=== PATIENT | male | born 1940 | race Caucasian/White ===

== ENCOUNTER 2023-05-05 19:00 | Inpatient (IN) | payer OTHER, SELFPAY ==
--- NOTE | 2023-05-05 14:35 | ITS.CL.PACE ---
Childbirth And Infant Care Teacher - Pacemaker Implant
Pacemaker Implant
Procedure Report:
PACEMAKER IMPLANT REPORT
Primary Care Provider: WEI Ruiz
Primary Sewer Pipe Press Operator: Dr. Shawn Vela
Date of Procedure: 05/05/2023
Procedure:
1: Implantation of dual-chamber permanent pacemaker utilizing the left bundle branch for conduction system pacing
Indication/Diagnosis:
1: Non-reversible symptomatic bradycardia due to type II second degree atrioventricular block
HISTORY: The patient is an 83-year-old man with a past medical history significant for hypertension, coronary artery disease status post CABG, and syncope associated with a Mobitz type II second-degree AV block. He is referred for dual-chamber
pacemaker placement.
Antibiotic: Ancef 2 g IV
Sedation: Per anesthesia staff
After informed consent was obtained, 'time out' was called and confirmed, the patient was prepped and draped in a sterile fashion. Lidocaine with epi was used for local anesthesia. Central venous access was obtained via subclavian venipuncture. An
incision was made along the left chest and a pre-pectoral pocket was formed. Using a Seldinger technique and peel-away sheaths, the pacing leads were placed under fluoroscopic guidance.
Fluoroscopy was used to determine likely anatomic site for left bundle branch pacing. The Medtronic C315 sheath was used to deliver the Medtronic 3830 Selectsecure pacing lead with the helix exposed just exposed from the sheath tip during continuous
monitoring when pacemapping the septum during gentle clockwise rotation to obtain a paced QRS morphology of a W pattern in lead V1. Once the suspected optimal site was identified, lead deployment was performed with several rapid rotations as paced
QRS morphology was intermittently monitored until a paced QRS complex in lead V1 demonstrated development of an R wave (qR or rSR).
Final conduction system paced QRS complex duration is 115 ms.
LVAT is 62 ms and peak V5 -> peak V1 timing is 53 ms.
Right atrial lead was placed at the RAA area. The patient is post CABG.
Once testing (see below) showed adequate and stable function, the leads were secured using the suture sleeves. The pocket was liberally irrigated with antibiotic solution. The leads were connected to the generator header and the leads and
generator were placed within the pocket. Fluoroscopy confirmed stable lead position. The pocket was closed in the typical fashion.
[ ] Antibiotic pouch was used
Fluoroscopy Time (min): 23.2
Radiation Dose (mGy): 80.75
DAP (Gy.cm2): 12
IMPLANTS:
Medtronic [id number], SN: [id number], Left Pectoral
RA: Medtronic 5076-52, SN: [id number], RAA
RV: Medtronic 3830 , SN: [id number], Interventricular septum at LBB
DEVICE TESTING:
Sensing: RA 1.4 mV, RV 5.5 mV
Capture: RA 0.75 V@0.4ms, RV 0.5 V@0.4ms
Ohms: RA 532, RV 546
FINAL PROGRAMMING
Vasyl Pacing: AAIR+DDDR 60-130 ppm
COMPLICATIONS: None
CONCLUSIONS:
1: Successful implant of dual chamber permanent pacemaker utilizing Left Bundle Branch conduction system capture for pacing.
RECOMMENDATIONS:
1. Post-op care (tele, CXR, IV abx)
2. In-Office wound check Monday.
Copy to: WEI Ruiz
--- NOTE | 2023-05-05 14:44 | W.PN.CARDCBS ---
Today's Communication / Plan
-
cefazolin periop
DC PPM implant
CXR post procedure
Impression / Plan
-
PCP: Betty Mohamud, DO
CDY: Marito Vela DO
HPI: 83 y/o, PMH sig for CAD, NSTEMI w/CABG x4(2015) complicated by brief postoperative AFib, HTN, HLD, DM, anxiety. He is very active and plays tennis 4-5x/weekly and does up to 9000 steps a day.
Presented to [facility] ER 05/03 after syncopal episode while playing tennis. Sustained facial abrasions and left eyebrow laceration repaired with sutures, as well as left thumb distal phalanx fracture. EKG revealed 1st deg AVB but on tele notable for short
episodes of Mobitz Type 2 AVB. Transferred for DC PPM implant today.
IMPRESSION:
Syncope
Mobitz type 2 Second deg AVB
1st deg AVB
Left thumb fracture/Left eyebrow laceration/facial abrasions
CAD
Prior NSTEMI w/CABG x4 (2015)
Post op AFib
HTN
HLD
DM
Anxiety
PLAN:
Dual chamber PPM implant today
cefazolin for abx prophylaxis
post procedure CXR
incision check next week at [facility]
discussed activity restrictions for the next 3-4 weeks- no tennis but ok to walk. He is aware and agreeable to limitations discussed.
symptomatic care for trauma related injuries- not wearing thumb splint at this time but will wear it when he goes home
should be on daily aspirin, statin- not taking and doesn't want to
echo- done at [facility] today- report not available at time of transfer
monitor BP, check lipid profile in AM
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
Subjective
Date of Service: May 05, 2023
Physical Exam
Physical Exam
AAOx3, MAEE 5/
Left periorbital swelling, ecchymosis, abrasions noted with left eyebrow sutures intact
RRR S1 S2 no murmurs
CTA bilat, non labored
soft abd, + bs
bilat extremities w/palpable distal pulses, no edema
left thumb with dressing CDI
[2023-05-05 16:02] VITALS: BP 141/88
[2023-05-05 16:31] LABS: Glucose - Point of Care 108 mg/dl (70-99)
[2023-05-05 16:37] VITALS: BP 141/88
[2023-05-05 16:38] VITALS: BMI 29.8
[2023-05-05 18:52] VITALS: BP 123/82
[2023-05-05 20:03] VITALS: BP 131/72
[2023-05-05 20:54] VITALS: BMI 27.6
[2023-05-05 22:25] VITALS: BP 145/90
[2023-05-05] MEDS: TYLENOL 650 MG PO (23:14)
[2023-05-05] MEDS: ANCEF 5 IV (23:14)
--- NOTE | 2023-05-05 23:43 | PTCARENOTE ---
Received pt from EP lab at approx 18:50. Patient AAOx3, VSS, and sating 93-95% RA. Tele monitor applied patient SR and occasional Apaced. HR in the 60-80's at rest. Patient denies any chest discomfort, but does c/o headache pain. Tylenol
administered--see MAR for details. Left anterior chest dressing intact, and immobilizer in place. Patient educated on activity restrictions, and verbalized understanding. See nursing skin assessment for further info. Ambulated patient to wheelchair,
patient steady on feet and denies any dizziness. CXR obtained. Patient aware of POC, call ingram in reach.
[2023-05-06 04:02] VITALS: BP 127/79
[2023-05-06 04:44] LABS: Blood Urea Nitrogen 20 mg/dl (9-20); Carbon Dioxide 24 mmol/L (22-30); Chloride 107 mmol/L (98-107); Estimated Creatinine Clearance 85 ml/min; Glucose 122 mg/dl (70-99); HDL Cholesterol 36 mg/dl; LDL Cholesterol, Calculated 85 mg/dl; Potassium 4.2 mmol/L (3.5-5.1); Sodium 137 mmol/L (135-145); Total Cholesterol 152 mg/dl (50-199); Triglyceride 159 mg/dl (10-149); Very Low Density Lipoprotein 31 mg/dl (0-30); eGFR > 60.00
[2023-05-06 04:48] LABS: Hematocrit 43.2 % (39.0-52.0); Hemoglobin 14.8 g/dL (13.0-18.0); Mean Corp Hgb Conc. 34.3 g/dL (33.0-37.0); Mean Corpuscular Hgb 30.8 pg (27.0-31.0); Mean Corpuscular Volume 89.8 fL (80.0-94.0); Mean Platelet Volume 10.1 fL (7.4-10.4); Platelet Count 178 10^3/uL (130-400); Red Blood Cell Count 4.81 10^6/uL (4.70-6.10); Red Cell Dist. Width 13.2 % (11.5-14.5); White Blood Cell Count 6.8 10^3/uL (4.8-10.8)
--- NOTE | 2023-05-06 07:24 | PTCARENOTE ---
Received patient this morning resting in bed, denies any pain or discomfort. Dressing left upper chest is dry and intact.
[2023-05-06 07:49] VITALS: BP 117/91
--- NOTE | 2023-05-06 08:18 | W.PN.CARDCBS ---
Addendum entered and electronically signed by Rick Miller MD 05/06/23 08:45:
I saw and examined the patient.
The Equipment Tech's note was reviewed and I agree with the note.
Comment: Briefly, 83-year-old man who presented to [facility] with traumatic syncope and was found to be in second-degree AV block
Underwent permanent pacemaker implantation on 05/05/2023
Feels well today, no cardiac complaints
Telemetry is unremarkable
Stable cardiac status
He will follow-up with his primary internet sales director, Dr. Vela
Original Note:
Today's Communication / Plan
-
Feeling well
Stable post PPM
Incision check next week with [facility]
OK for discharge
Impression / Plan
-
PCP: Betty Mohamud DO
CDY: Marito Vela DO
Impression:
Syncope
Mobitz type 2 Second deg AVB
s/p Medtronic DC PPM 05/05/2023
1st deg AVB
Left thumb fracture/Left eyebrow laceration/facial abrasions
CAD
Prior NSTEMI w/CABG x4 (2015)
Post op AFib
HTN
HLD
DM
Anxiety
Plan:
-Presented initially to [facility] after syncopal episode during tennis game.
-Noted to have short episodes of Mobitz type 2 AV block and transferred to for PPM.
-s/p Medtronic PPM 05/04. Remains paced on tele. Feeling well overnight.
-BP and HR stable. Not on any medications as OP.
-Discussed activity restrictions, no tennis but ok to walk.
-Incision check arranged at [facility]
-Symptomatic care for trauma related injuries- not wearing thumb splint at this time but will wear it when he goes home
-Should be on daily aspirin, statin- not taking and doesn't want to. Discuss further as OP.
-OK for discharge
HPI: 83 y/o, PMH sig for CAD, NSTEMI w/CABG x4(2014) complicated by brief postoperative AFib, HTN, HLD, DM, anxiety. He is very active and plays tennis 4-5x/weekly and does up to 9000 steps a day.
Presented to [facility] ER 05/03 after syncopal episode while playing tennis. Sustained facial abrasions and left eyebrow laceration repaired with sutures, as well as left thumb distal phalanx fracture. EKG revealed 1st deg AVB but on tele notable for short
episodes of Mobitz Type 2 AVB. Transferred for DC PPM implant today.
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
Subjective
Date of Service: May 06, 2023
Feeling well overnight. No dizziness or lightheadedness.
Objective
Labs:
05/06/23 04:10
05/06/23 04:10
Labs
Hgb 14.8 g/dL (13.0-18.0) 05/06/23 04:10
Hct 43.2 % (39.0-52.0) 05/06/23 04:10
Plt Count 178 10^3/uL (130-400) 05/06/23 04:10
Sodium 137 mmol/L (135-145) 05/06/23 04:10
Potassium 4.2 mmol/L (3.5-5.1) 05/06/23 04:10
BUN 20 mg/dl (9-20) 05/06/23 04:10
Creatinine 0.7 mg/dL (0.7-1.3) 05/06/23 04:10
Glucose 122 mg/dl (70-99) H 05/06/23 04:10
Vital Signs and I&O:
Vital Signs
Temp Pulse Resp BP Pulse Ox
98.2 F 62 14 127/79 93
05/06/23 07:47 05/06/23 07:47 05/06/23 07:47 05/06/23 04:02 05/06/23 07:47
Vital Signs
Temp Pulse Resp BP Pulse Ox
98.2 F 62 14 127/79 93
05/06/23 07:47 05/06/23 07:47 05/06/23 07:47 05/06/23 04:02 05/06/23 07:47
Intake & Output
05/04/23 05/05/23 05/06/23 05/07/23
06:59 06:59 06:59 06:59
Intake Total 240 / 240
Output Total 225 / 225 250 / 250
Balance -250 / -250
Physical Exam
Physical Exam
GEN: No distress, awake, alert, oriented x3
HEENT: supple, anicteric, mmm
LUNGS: CTA b/l, no wheezes/rales
CV: Reg, S1/S2, no murmur
EXT: No clubbing, cyanosis, or edema
NEURO: Gross non-focal
SKIN: Warm, dry, no rash
[2023-05-06] MEDS: ANCEF 5 IV (08:26)
--- NOTE | 2023-05-06 08:41 | W.DS.TRANS ---
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
-
Discharge Instructions:
Discharge Diagnosis/Procedures Syncope with heart block, s/p pacemaker implant
Diet Low Cholesterol
Driving Restrictions No driving for 1 week
Bathing Restrictions OK to Shower
Instructions:
Stand-Alone Forms: DC Inst - Implanted Device
Changes to Home Medications: No
Discharge Medications:
DC Medications w/original date entered in [facility]
ascorbic acid 125 mg-collagen, hydrolyzed 740 mg capsule 1 cap PO DAILY 05/05/23
calcium carbonate-magnesium oxide 333 mg-167 mg tablet 1 tab PO DAILY 05/05/23
cholecalciferol (vitamin D3) 25 mcg (1,000 unit) tablet 25 mcg PO DAILY 05/05/23
multivitamin with folic acid 400 mcg tablet 1 tab PO DAILY 05/05/23
vitamin B complex 1 tab PO DAILY 05/05/23
Home Medication Changes
Pending Results: No
--- NOTE | 2023-05-06 11:41 | PTCARENOTE ---
Patient seen by cardiology and is ok for discharge. Tegaderm and gauze removed from left chest wall as per MD order, steri strips intact. No signs of bleeding or hematoma noted. Reviewed discharge instructions with the patient and his S.O. and they
state their understanding. Aware of follow up incision check on Monday. Patient discharged home.
--- NOTE | 2023-05-08 08:53 | CM ---
pt prev indep, no dc planning needs noted. dc'ed to home
== END 2023-05-06 11:15 | disposition home or self-care (01) | DRG 244 ==
LOC: IVU 19:00
PROVIDERS: Internal Medicine Interventional Cardiology; Nurse Practitioner; ADMITTING PHYSICIAN Internal Medicine Cardiovascular Disease; ATTENDING PHYSICIAN Internal Medicine Interventional Cardiology
PROC: 0JH606Z Insertion of Pacemaker, Dual Chamber into Chest Subcutaneous Tissue and Fascia, Open Approach (ICD-10-PCS; 2023-05-05)
PROC: 02H63JZ Insertion of Pacemaker Lead into Right Atrium, Percutaneous Approach (ICD-10-PCS; 2023-05-05)
PROC: 02HK3JZ Insertion of Pacemaker Lead into Right Ventricle, Percutaneous Approach (ICD-10-PCS; 2023-05-05)
DX: I44.1 Atrioventricular block, second degree (principal); I25.10 Atherosclerotic heart disease of native coronary artery without angina pectoris; I10 Essential (primary) hypertension; E78.5 Hyperlipidemia, unspecified; E11.9 Type 2 diabetes mellitus without complications; I25.2 Old myocardial infarction; Z95.1 Presence of aortocoronary bypass graft
CPT/HCPCS: 33208; 71045; 80048; 80061; 82962; 85027; 87070; 93005; C1769; C1785; C1887; C1892; C1898; Q9967

== ENCOUNTER → 2024-12-06 11:40 | Outpatient (REF) | payer OTHER, SELFPAY | LOC: HWRCS 11:40 | PROVIDERS: ATTENDING PHYSICIAN Internal Medicine Cardiovascular Disease | DX: Z95.1 Presence of aortocoronary bypass graft (principal) | CPT/HCPCS: 78452; 93017; A9500; J2785 ==

== ENCOUNTER 2025-01-01 07:21 | Day surgery (SDC) | payer OTHER, SELFPAY ==
[2025-01-01] VITALS (21 sets, daily range): BP systolic 102–145; BP diastolic 36–90; BMI 28.9; BMI 27.4
[2025-01-01] MEDS: NSS 266 ML IV (08:03)
[2025-01-01 08:04] LABS: Hematocrit 46.6 % (39.0-52.0); Hemoglobin 16.1 g/dL (13.0-18.0); Mean Corp Hgb Conc. 34.5 g/dL (33.0-37.0); Mean Corpuscular Volume 91.6 fL (80.0-94.0); Platelet Count 195 10^3/uL (130-400); Red Cell Dist. Width 13.1 % (11.5-14.5)
[2025-01-01] MEDS: LOW STRENGTH ASPIRIN 324 MG PO (08:04)
--- NOTE | 2025-01-01 10:13 | W.ICD.CONTRA ---
Post ICD/INSTALLATION SUPERINTENDENT-D
-
History of OH?: No
LV Function
Left ventricular function study result?: Ejection Fraction >/= 40%
ACEI/ARB/ARNI
Patient already on ACEI/ARB/ARNI: Yes
Beta-Ave
Patient already on Beta Ave: Yes
--- NOTE | 2025-01-01 14:24 | CM ---
Chart reviewed. Patient is independent of ADLS, lives with his significant other n a 1 STH, 1 JAROD, 0 DME. Plan is for the patient to return home. CM to follow
--- NOTE | 2025-01-01 16:21 | ITS.CL.ANGIO ---
Lactation Consultant - Angioplasty
Angioplasty
Procedure Report:
LEFT HEART CATHETERIZATION
Date of Procedure: January 01, 2025
Procedures performed:
1: Coronary angiography
2: Saphenous vein bypass graft and left internal mammary artery bypass graft angiography
3: Rescue angioplasty and stenting of the left internal mammary graft ostium dissection with placement of a 3.0 x 15 mm Charlemont drug-eluting stent postdilated at high-pressure with a 3.5 mm diameter noncompliant balloon
Primary Care Provider: WEI Ruiz
Primary Gun Fertilizer: Dr. Shawn Vela
INDICATION: The patient is an 84-year-old man with a past medical history of distant RCA stenting followed by later occlusion and ultimately CABG in 2014, sick sinus syndrome status post pacemaker placement, statin intolerance, and paroxysmal atrial
fibrillation not on anticoagulation with no recent A-fib burden noted on pacemaker remote. The patient was noted to have nonsustained VT on pacemaker monitoring without any symptoms. He plays tennis regularly without any typical angina.
Echocardiography performed on December 30 showed normal LV systolic function with no significant valvular disease. Nuclear perfusion imaging performed on November 26, 2024 showed a medium sized area of moderate to severe perfusion defect that is
predominantly reversible in the basal to mid anterolateral and inferolateral nichols consistent with ischemia. There is also a small to medium sized area of mild perfusion defect that is reversible in the basal to mid anteroseptal wall consistent
with ischemia. In light of his abnormal stress test and asymptomatic nonsustained ventricular tachycardia he is referred for cardiac catheterization.
ACCESS: The patient was prepped and draped in usual sterile fashion. A 6 Brazilian sheath was placed in the left radial artery using the Seldinger over the wire technique.
HEMODYNAMIC FINDINGS (mmHg):
LV(s/d,EDP): 106/18, 23
Ao(s/d,m): 106/59, 79
ANGIOGRAPHIC FINDINGS:
Single-plane Left Ventriculography in LOVE Projection: Not done
Coronary Angiography:
Dominance: Right
Left Main: Smooth tapered medium caliber vessel that is patent.
Left Anterior Descending: Flush ostial occlusion.
Left Circumflex: The left circumflex has a 80% proximal stenosis followed by a mid total occlusion. There are 2 small to medium caliber high OM's that have severe ostial stenosis with LAZ-3 flow. These vessels are too small for percutaneous
intervention and have limited vascular territory.
Right Coronary: Proximal total occlusion.
SVG to D1 sequential to OM: Nonselectively imaged initially with a 6 Brazilian JR4. Ultimately selectively engaged with a 6 Brazilian multipurpose catheter. The aortic anastomosis and first leg of the graft is patent with a smooth mid 40% stenosis. The
touchdown to the diagonal branch is widely patent and there is no obstructive disease in the graft to diagonal branch. The sequential portion of the vein graft is flush occluded. The OM system fills via both left to left collaterals from the vein
graft as well as right to left collaterals from the patent SVG to PDA.
SVG to right PDA: The graft is widely patent with mild luminal irregularities. It anastomosis in the bifurcation of the PDA and right PLV. The twin hills vessels are patent. There is right to left filling of the circumflex system noted.
AYALA to LAD: The graft is widely patent as is the anastomosis. The LAD itself is a medium caliber vessel that has a fairly focal but calcified 90% distal stenosis. The apical LAD does wraparound the apex and feed a significant portion of the
distal inferior wall. There is normal resting flow.
Percutaneous Coronary Intervention (PCI): In light of his having nonsustained VT and ischemia noted on his noninvasive imaging, I felt it was reasonable to try to perform PCI of the distal LAD as this was his only real target for PCI with a
functionally occluded twin hills circulation and otherwise patent grafts. The largest territory of ischemia was obviously the on grafted circumflex area which was receiving collaterals from both the grafted left and right circulation. The patient was
pretreated with aspirin. The patient was given unfractionated heparin. A 6 Brazilian AYALA guiding catheter was used from the left radial approach. Initial attempts at engagement were not difficult however with passing a short BMW wire I immediately
became concerned that there was a proximal dissection at the ostium of the AYALA takeoff. Recognizing the danger of the situation, I immediately called for CT surgery consultation and fortunately Dr. Fer Lacey was able to come to the room to
review the angiograms. I was reticent to perform further injections given the concern for extending the dissection and ultimately occluding the graft. Dr. Lacey understandably felt he would be a very poor surgical candidate given his age and that
this would be a redo in an urgent situation. I remain very concerned that with a new dissection flap at the ostium he would be at risk for acute closure of the graft at which point percutaneous intervention would be possible. I decided to get
access from a femoral approach in the hopes that I may engage the AYALA ostium less traumatically. Using ultrasound guidance and a micropuncture needle a 6 Brazilian sheath was placed in the right common femoral artery without complication. Initial
attempts to engage with the 6 Brazilian AYALA guide from the femoral approach were unsuccessful. Again I was being very very cautious to only gently and nonselectively image the AYALA takeoff. Ultimately I chose to attempt imaging the AYALA from the
left radial approach with a 5 Brazilian AYALA guide. This was similarly unsuccessful and would consistently point me towards the dissection flap. Fortunately, with some persistence, good luck, and skill I was able to carefully engage the AYALA in the
true lumen. The patient remained hemodynamically stable and without symptoms and with preserved flow down the graft the entire case. Next a Hi-Torque floppy wire was advanced down easily into the graft. Primary stenting of the ostium was
performed using a 3.0 x 15 mm Charlemont drug-eluting stent. This was postdilated with a 3.5 mm diameter noncompliant balloon at 16 jacoby distally and 18 jacoby at the proximal segment and 18 jacboy to flare the ostium. Follow-up angiography revealed an
excellent angiographic result with no evidence of dye staining or persistent dissection and normal distal flow. The patient was given a loading dose of clopidogrel 600 mg on the table.
FINAL RESULT: Successful management of catheter/wire related complication with primary stenting of the left internal mammary artery ostium with placement of a drug-eluting stent as described above.
Fluoroscopy Time (min): 28
Radiation Dose (mGy):1038
9DAP (Gy.cm2): 69
Closure device: 6 Brazilian Angio-Seal to right common femoral artery. A TR band was applied for hemostasis at the right wrist.
Complications: Catheter/wire dissection of the left internal mammary artery as described above
ASSESSMENT:
1: Severe twin hills coronary disease with functional occlusion of both the twin hills left and right arteries.
2: Widely patent AYALA to LAD with distal 90% stenosis in the LAD as described above.
3: Widely patent SVG to PDA.
4: Widely patent SVG to diagonal with occlusion of the sequential SVG to the OM. OM system fills via both left to left and right to left collaterals as described above
5: Abandon attempts at twin hills LAD intervention with dissection of the left internal mammary artery managed with placement of a drug-eluting stent as described above.
CONCLUSIONS and RECOMMENDATIONS:
1: Routine drug-eluting stent medical therapy and monitoring with dual antiplatelet therapy using aspirin 81 mg daily and clopidogrel 75 mg daily uninterrupted for a year. Aspirin 81 mg daily indefinitely.
2: The patient is willing to retry statin therapy -start atorvastatin 40 mg daily.
3: Medical therapy for coronary artery disease. If the patient continues to have significant ventricular arrhythmias or develops angina, I would consider returning for distal LAD intervention as was considered today. Given the difficulty we had
today I would like a harder clinical indication of put him at the risk of this procedure.
Maciej Moser M.D.
[2025-01-01] MEDS: LIPITOR 40 MG PO (17:52)
--- NOTE | 2025-01-01 19:02 | PTCARENOTE ---
~1300: Handoff report received from CCL. Pt AOx4, A paced 1st degree AVB 60s on tele, SBP 130s, RA satting 87% with cear lungs. Patient bedrest at this time post CCL. +2 pulses, patient denies pain at this time. R sha site CDI, L radial site CDI
with TR band in place. Patient oriented to room and call ingram system and admission charting completed. All needs met at this time, call ingram within reach.
~[id number]: Air removed from L radial TR band. Site soft, no hematoma or oozing noted. Family at bedside.
~6376-1573: Patient OOB to bathroom. R groin site soft with no oozing or hematoma noted. All needs met at this time, call ingram within reach.
~[id number]: TR band removed, dressing CDI.
~[id number]: VSS. I/Os cahrted. Handoff repot given to nightshift RN.
--- NOTE | 2025-01-01 20:50 | PTCARENOTE ---
Received patient at change of shift. A paced on the monitor, HR in the 60s. L radial and R groin dressings CDI. No complaints from pt at this time, call ingram within reach.
[2025-01-02 02:10] VITALS: BP 109/78
[2025-01-02 02:31] LABS: Hematocrit 43.8 % (39.0-52.0); Hemoglobin 14.7 g/dL (13.0-18.0); Mean Corp Hgb Conc. 33.6 g/dL (33.0-37.0); Mean Corpuscular Volume 92.4 fL (80.0-94.0); Platelet Count 187 10^3/uL (130-400); Red Cell Dist. Width 12.9 % (11.5-14.5)
[2025-01-02 03:01] LABS: Blood Urea Nitrogen 18 mg/dl (9-20); Calcium 9.0 mg/dl (8.4-10.2); Carbon Dioxide 25 mmol/L (22-30); Chloride 108 mmol/L (98-107); Estimated Creatinine Clearance 72 ml/min; Glucose 104 mg/dl (70-99); HDL Cholesterol 34 mg/dl; LDL Cholesterol, Calculated 90 mg/dl; Potassium 4.4 mmol/L (3.5-5.1); Sodium 137 mmol/L (135-145); Very Low Density Lipoprotein 26 mg/dl (0-30); eGFR > 60.00
[2025-01-02 07:04] VITALS: BP 128/76
[2025-01-02] MEDS: PLAVIX 75 MG PO (08:36)
[2025-01-02] MEDS: TOPROL XL 25 MG PO (08:36)
[2025-01-02] MEDS: LOW STRENGTH ASPIRIN 81 MG PO (08:36)
--- NOTE | 2025-01-02 08:53 | W.PN.CARDCBS ---
Addendum entered and electronically signed by Norm Alatorre DO 01/02/25 13:36:
I saw and examined the patient.
The Dealer Support Technician's note was reviewed and I agree with the note.
Comment:
Plan:
Continue DAPT and statin
Reviewed his cath with him. He has no chest pain
Stable cv status for d/c
He has follow up tomorrow with Dr Vela
Discussed with nursing and at bedside.
Original Note:
Today's Communication / Plan
-
DAPT, statin
groin check am
cardiac rehab c/s
home today
Impression / Plan
-
Primary Care Provider: WEI Ruiz
Primary State Patrol Officer: Dr. Shawn Vela
84-year-old man with a past medical history of distant RCA stenting followed by later occlusion and ultimately CABG in 2014, sick sinus syndrome status post pacemaker placement, statin intolerance, and paroxysmal atrial fibrillation not on
anticoagulation with no recent A-fib burden noted on pacemaker remote. The patient was noted to have nonsustained VT on pacemaker monitoring without any symptoms. He plays tennis regularly without any typical angina. Echocardiography performed on
December 30 showed normal LV systolic function with no significant valvular disease. Nuclear perfusion imaging performed on November 26, 2024 showed a medium sized area of moderate to severe perfusion defect that is predominantly reversible in the
basal to mid anterolateral and inferolateral nichols consistent with ischemia. There is also a small to medium sized area of mild perfusion defect that is reversible in the basal to mid anteroseptal wall consistent with ischemia. In light of his
abnormal stress test and asymptomatic nonsustained ventricular tachycardia he is referred for cardiac catheterization.
Impression:
CAD/CABG 2015 prior RCA PCI
Abnormal NST 11/26/24
NSVT
SSS post PPM 04/2023
HTN
HLD
DM2
Anxitey
PAF after CABG, none since
Plan:
post cardiac cath with new distal [place] LAD stenosis attempted PCI via AYALA graft c/b ostial dissection of AYALA rescued with PCI 3.0 x 15 mm Tim JILLIAN
Rad/Fem sites stable
denies cp
tele Apaced no ectopy or NSVT
DAPT ASA/Plavix
continue metoprolol xl 25mg
previously declined statin therapy but willing to try
LDL 90, will start atorvastatin 40mg recheck LFT's, Lipids in 6-8 weeks
cardiac rehab c/s
groin check at [facility] 01/03
Medical therapy for coronary artery disease. If the patient continues to have significant ventricular arrhythmias or develops angina, I would consider returning for distal LAD intervention as was considered today. Given the difficulty we had today
I would like a harder clinical indication of put him at the risk of this procedure.
stable for d/c home today
Progress Note - State Patrol Officer
Subjective
Date of Service: January 02, 2025
denies cp, sob
Objective
Labs:
01/02/25 02:15
01/02/25 02:15
Labs
Hgb 14.7 g/dL (13.0-18.0) 01/02/25 02:15
Hct 43.8 % (39.0-52.0) 01/02/25 02:15
Plt Count 187 10^3/uL (130-400) 01/02/25 02:15
Sodium 137 mmol/L (135-145) 01/02/25 02:15
Potassium 4.4 mmol/L (3.5-5.1) 01/02/25 02:15
BUN 18 mg/dl (9-20) 01/02/25 02:15
Creatinine 0.8 mg/dL (0.7-1.3) 01/02/25 02:15
Glucose 104 mg/dl (70-99) H 01/02/25 02:15
Vital Signs and I&O:
Vital Signs
Temp Pulse Resp BP Pulse Ox
97.4 F 66 20 128/76 97
01/02/25 07:06 01/02/25 08:30 01/02/25 07:06 01/02/25 07:04 01/02/25 07:06
Vital Signs
Temp Pulse Resp BP Pulse Ox
97.4 F 66 20 128/76 97
01/02/25 07:06 01/02/25 08:30 01/02/25 07:06 01/02/25 07:04 01/02/25 07:06
Intake & Output
12/31/24 01/01/25 01/02/25 01/03/25
06:59 06:59 06:59 06:59
Output Total 700 / 700
Balance -700 / -700
Physical Exam
Physical Exam
NAD< AOX3
S1, S2, RRR
CTAB, non labored, no wheeze
SNTND Bsx4
L Rad site c/d/i no HT, good pulse
R fem sitej c/d/i no HT< soft
--- NOTE | 2025-01-02 10:19 | PTCARENOTE ---
Assumed care at 0700, patient in chair eating breakfast. Denies pain or shortness of breath. Right groin and left radial cath sites CDI. Call ingram in reach
--- NOTE | 2025-01-02 10:27 | CM ---
Chart reviewed. Patient is independent of ADLS, lives with his significant other, 1 STH, 1 JAROD, 0 DME. Plan is for the patient to return home.
[2025-01-02 11:58] VITALS: BP 127/77
--- NOTE | 2025-01-02 13:25 | PTCARENOTE ---
Discharge teaching provided, patient verbalized understanding. IV and telemetry removed.
--- NOTE | 2025-01-02 13:43 | PTCARENOTE ---
Patient escorted to main lobby.
== END 2025-01-02 14:21 | disposition home or self-care (01) ==
LOC: CATH 07:21
PROVIDERS: Internal Medicine Interventional Cardiology; Nurse Practitioner Adult Health; ATTENDING PHYSICIAN Internal Medicine Cardiovascular Disease; FAMILY PHYSICIAN Family Medicine
DX: I25.10 Atherosclerotic heart disease of native coronary artery without angina pectoris (principal); Z95.1 Presence of aortocoronary bypass graft; Z95.0 Presence of cardiac pacemaker; I48.0 Paroxysmal atrial fibrillation; I49.5 Sick sinus syndrome; I47.20 Ventricular tachycardia, unspecified; Z95.5 Presence of coronary angioplasty implant and graft; Z79.02 Long term (current) use of antithrombotics/antiplatelets; Z79.82 Long term (current) use of aspirin; Z79.899 Other long term (current) drug therapy; E11.9 Type 2 diabetes mellitus without complications; E78.5 Hyperlipidemia, unspecified; I10 Essential (primary) hypertension
CPT/HCPCS: 80048; 80061; 85027; 85347; 93005; 93459; C1725; C1760; C1769; C1874; C1887; C1894; C9604; Q9967